=== PATIENT | female | born 1955 | race Two or more races ===

== ENCOUNTER 2022-12-14 09:27 | Emergency (ER) | payer MEDICARE, BC ==
[~2022-12-14] VITALS: Ht 157.5 cm; Wt 67.1 kg
[2022-12-14 09:37] VITALS: BP 192/88; TEMP 99.5
[2022-12-14] MEDS ORDERED: CETI-90 PO (09:44)
[2022-12-14 10:05] VITALS: O2SAT 100
== END 2022-12-14 10:07 | disposition home or self-care (01) ==
LOC: ER 09:38
DX: J32.9 Chronic sinusitis, unspecified (principal); R42 Dizziness and giddiness; Z79.899 Other long term (current) drug therapy

== ENCOUNTER 2023-04-05 07:22 | Emergency (ER) | payer MEDICARE, BC ==
[~2023-04-05] VITALS: Ht 157.5 cm; Wt 67.6 kg
[~2023-04-05 07:22] MED LIST: CETI-90 PO
[2023-04-05 07:30] VITALS: TEMP 98.6
[2023-04-05] MEDS ORDERED: FLUT16SP16 BNOSTRILS (07:53)
[2023-04-05] MEDS ORDERED: CETI1TAB9 PO (07:53)
[2023-04-05 08:00] VITALS: BP 144/68
[2023-04-05 08:05] VITALS: O2SAT 98
== END 2023-04-05 08:12 | disposition home or self-care (01) ==
LOC: ER 07:25
DX: J06.9 Acute upper respiratory infection, unspecified (principal); Z79.899 Other long term (current) drug therapy